=== PATIENT | male | born 1935 | race African-American/Black ===

== ENCOUNTER 2017-06-07 10:02 | Day surgery (SDC) | payer MEDICARE, BC, OTHER ==
[~2017-06-07] VITALS: Ht 180.3 cm; Wt 102.3 kg
[~2017-06-07 10:02] MED LIST: AMBIEN 10MG10 MG PO; AMBIEN 5MG TABLE5 MG PO; AMBIEN10 MG PO; AMITRIPTYLINE H25 M1 PO; AMITRIPTYLINE25 MG PO; AMRIX15 MG PO; ANTIVERT 25MG25 MG PO; ARTHRITIS PAIN PO; ASPI325T6 PO; ASPIR-LOX AD325 MG PO; ASPIRIN 32325 MG/TAB PO; ASPIRIN E.C. 8181 MG PO; ATACAND 16M16 MG/TAB PO; ATACAND PO; ATACAND16 MG PO; ATACAND32 MG PO; BIAXIN 500MG T500 MG PO; BIAXIN FILMTAB500 MG PO; BIAXIN500 MG PO; BROVANA15 MCG/2 M IH; CARDENE 20MG CA20 M1 PO; CARDENE PO; CARDIZEM 60MG T60 MG PO; CELEBREX 200MG200 MG PO; CELEBREX200 MG PO; CINNAMON500 MG PO; COUMADIN 22.5 MG/TAB PO; COUMADIN 5MG5 MG/TAB PO; CUTIVATE15GMOINT TOP; DALIRESP500 MCG PO; EC NAPROSYN500 MG PO; FIORICET 325 MG1 TAB PO; FUROCOT40 MG PO; GENTAMICIN180 MG/501 NS; GLIPIZIDE5 MG PO; GLUCOPHAGE500 MG/TAB PO; HCTZ 25MG TAB25 MG PO; HCTZ 25MG25 MG PO; HCTZ PO; HYDROCORTISONE30 G3 TP; INDERAL 20MG20 MG PO; INDERAL PO; INDERAL60 MG PO; IRON TABLETS325 MG PO; IRON325 M1 PO; JANUVIA 100MG100 MG PO; K-DUR 10 MEQ T10 MEQ PO; KLOR-CON 1010 MEQ PO; LASIX 40MG TABL40 MG PO; LASIX40 MG PO; LETAIRIS10 MG PO; LETAIRIS5 MG PO; LEVAQUIN 5500 MG/TA1 PO; LEVAQUIN 750MG750 M1 PO; LIDO TOP; LIDO35.4 TOP; LIPITOR 80MG80 MG PO; LODINE 300300 MG/CAP PO; MAXIMUM D310000 IU PO; METFORMIN500 MG PO; MIDRIN; MIDRIN 325 MG-11 CAP PO; MIDRIN PO; MITIGARE0.6 MG PO; MUCINEX1200 MG PO; NAPROSYN500 MG PO; NEURONTIN300 MG PO; NEURONTIN300 MG/CAP PO; NITROSTAT0.4 MG/TAB SL; NORCO 325 MG-51 TAB PO; NORVASC 5MG5 MG/TAB PO; OXY IR5 MG PO; PERCOCET 325 MG1 TA2 PO; POTASSIUM; POTASSIUM CHLO10 ME3 PO; POTASSIUM CL 110 MEQ PO; PRAVACHOL 40MG40 MG PO; PRAVACHOL80 MG PO; PREDNISONE20 MG PO; PREVACID 30MG30 M1 PO; PRIL40 PO; PRILOSEC 20MG20 MG PO; PROCTOFOAM-HC 11 FOA RC; PROPRANOLOL10 MG PO; PULMICORT R1 MG/2 ML IH; PULMICORT0.5 MG/2 M IH; RANEXA 500MG T500 MG PO; SIMVASTATIN10 MG PO; SIMVASTATIN20 MG PO; SPORANOX100 MG PO; TOPAMAX25 M1 PO; TYLENOL 500MG500 MG PO; VICODIN 5/5001 UDTAB PO; VITAMIN D 1001000 IU PO; WESTCORT TP; XANAX 0.5MG0.5 MG PO; XOPENEX 1.1.25 MG/3 INH; ZITHROMAX 250M250 MG PO; ZITHROMAX500 M2 PO; ZOCOR 10MG10 MG PO; ZOCOR 20MG20 MG PO; ZOCOR10 MG PO; [UNRECOGNIZED DRUG - OTHER]; [UNRECOGNIZED DRUG - OTHER]; [UNRECOGNIZED DRUG - OTHER]
[2017-06-07] MEDS ORDERED: LYRICA 100MG C100 M1 PO (10:41)
[2017-06-07] MEDS ORDERED: INDERAL 20MG20 MG PO (10:43)
[2017-06-07] MEDS ORDERED: INDERAL60 MG PO (10:44)
[2017-06-07] MEDS ORDERED: OXYCONTIN 10MG10 MG PO ×2 (10:45→10:46)
[2017-06-07 11:03] VITALS: BP 131/66; PULSE 52; TEMP 97.4
[2017-06-07 13:45] VITALS: BP 116/73; PULSE 46; TEMP 98.5
[2017-06-07 14:00] VITALS: BP 141/61; PULSE 47
[2017-06-07 14:15] VITALS: BP 143/90; PULSE 46
[2017-06-07] MEDS ORDERED: PYRIDIUM 100MG100 MG PO (14:26)
[2017-06-07] MEDS ORDERED: SENOKOT S 50 MG1 TAB PO (14:26)
[2017-06-07 14:30] VITALS: BP 141/66; PULSE 46
== END 2017-06-07 14:40 | disposition home or self-care (01) ==
LOC: SDCO 10:02
DX: N20.1 Calculus of ureter (principal); N40.1 Benign prostatic hyperplasia with lower urinary tract symptoms; R35.1 Nocturia; R39.15 Urgency of urination; I10 Essential (primary) hypertension; I25.2 Old myocardial infarction; I25.10 Atherosclerotic heart disease of native coronary artery without angina pectoris; E11.42 Type 2 diabetes mellitus with diabetic polyneuropathy; I48.91 Unspecified atrial fibrillation; J44.9 Chronic obstructive pulmonary disease, unspecified; F41.9 Anxiety disorder, unspecified; E78.00 Pure hypercholesterolemia, unspecified; M19.90 Unspecified osteoarthritis, unspecified site; G47.33 Obstructive sleep apnea (adult) (pediatric); Z79.84 Long term (current) use of oral hypoglycemic drugs; Z90.49 Acquired absence of other specified parts of digestive tract; Z83.3 Family history of diabetes mellitus; Z82.49 Family history of ischemic heart disease and other diseases of the circulatory system
CPT/HCPCS: C1769; C2617; J2405; J2704; J3010; J7030; Q9967

== ENCOUNTER → 2018-08-10 | Outpatient (CLI) | payer MEDICARE, BC, OTHER ==
[~2018-08-10] MED LIST changes: +LYRICA 100MG C100 M1 PO; +OXYCONTIN 10MG10 MG PO; +PYRIDIUM 100MG100 MG PO; +SENOKOT S 50 MG1 TAB PO
== END ==
LOC: COL.RAD 10:09
DX: N40.0 Benign prostatic hyperplasia without lower urinary tract symptoms (principal); Z90.49 Acquired absence of other specified parts of digestive tract
CPT/HCPCS: Q9967

== ENCOUNTER 2019-02-28 05:10 | Day surgery (SDC) | payer MEDICARE, BC, OTHER ==
[2019-02-28] VITALS (7 sets, daily range): BP systolic 125–146; BP diastolic 59–64; PULSE 49–56; TEMP 97.3–98.2
[~2019-02-28] VITALS: Ht 182.9 cm; Wt 92.3 kg
[2019-02-28] MEDS ORDERED: MITIGARE0.6 MG PO (06:21)
[2019-02-28] MEDS ORDERED: SINGULAIR 110 MG/TAB PO (06:28)
[2019-02-28] MEDS ORDERED: [UNRECOGNIZED DRUG - OTHER] TOP (06:29)
[2019-02-28] MEDS ORDERED: PRILOSEC 20MG20 MG PO (06:29)
[2019-02-28] MEDS ORDERED: FLONASEALLERGY NS (06:30)
[2019-02-28] MEDS ORDERED: DALIRESP500 MCG PO (06:31)
[2019-02-28] MEDS ORDERED: REMERON SOLTAB15 MG PO (06:31)
[2019-02-28] MEDS ORDERED: CIALIS5 MG PO (06:32)
--- NOTE | 2019-02-28 08:50 | NUR ---
The patient arrived back to [facility] from the recovery room at this time. The patient appears drowsy but arouses easily to his name. The patient denies any pain or nausea at this time. The patient has an jose wrap dressing with a knee brace in place to his right leg that appears clean, dry and intact. The patient has oxygen in place at 1L per nasal cannula. Post operative vital signs were started at this time. The patient received a nerve block and minimal spinal for pain control. The patient is able to move his left toes at this time but is still unable to move the right toes. Call light is within reach. Will continue to monitor the patient.
[2019-02-28] MEDS ORDERED: NORCO 325 MG-51 TAB PO (09:05)
--- NOTE | 2019-02-28 09:05 | NUR ---
The patient's was brought back to be at his bedside at this time. The patient's vital signs remain stable. The patient's call light is within reach. Will continue to monitor the patient.
[2019-02-28] MEDS ORDERED: COLACE 100100 MG/CAP PO (09:06)
[2019-02-28] MEDS ORDERED: XARELTO10 MG PO (09:06)
[2019-02-28] MEDS ORDERED: ZOFRAN 4MG T4 MG/TAB PO (09:07)
--- NOTE | 2019-02-28 09:20 | NUR ---
The patient appears to be resting quietly on the cart his with his eyes closed at this time. Respirations even and unlabored. Call light is within reach. The patient's remains at his bedside. Will continue to monitor the patient.
--- NOTE | 2019-02-28 09:35 | NUR ---
The patient requests to try some juice and water at this time. The patient's remains at his bedside. Will continue to monitor the patient.
--- NOTE | 2019-02-28 10:05 | NUR ---
The patient appeared to tolerate the juice well and requests to try a muffin at this time. The patient was placed on room air and appears to be tolerating it well. The patient is now able to move his left foot and wiggle his toes on the right side. The patient reports increased pain in his right knee at this time. The nurse explained to the patient about the nerve block and minimal spinal that he received pre operatively for pain control and that with the minimal movement he still has in both legs that is an indication that the medication given is still working. Will continue to monitor the patient.
--- NOTE | 2019-02-28 10:35 | NUR ---
The patient has finished his muffin and appeared to tolerate it well. The patient continues to report increased pain in his right knee at this time. The patient is able to do a straight leg lift with the left leg and can move his right ankle. The patient was given a PRN dose of Cinebar one tab at this time. The patient was also given fresh warm blankets and denies any futher needs at this time. Will continue to monitor the patient.
--- NOTE | 2019-02-28 11:05 | NUR ---
The patient used the call light to notify the nurse that he needed to void and was feeling nauseated. The patient did have a small amount of emesis come up. He was given a fresh emesis bag at this time. The patient was given a urinal and dangled his legs off the side of the bed to use it. He voided 200mL of yellow urine at this time. Will continue to monitor the patient.
--- NOTE | 2019-02-28 11:20 | NUR ---
The patient continues to report nausea and pain at this time. The nurse informed the patient that she will give him a dose of anti-nausea medication then will give him a second dose of Huddy.
--- NOTE | 2019-02-28 11:40 | NUR ---
The patient nausea appears to be better and he was given a second pain pill for his continued pain in his right knee. The patient and his voice a desire to be discharged home. Discharge instructions were reviewed with the patient and his at this time. They both verbalized understanding and have no questions for the nurse at this time. The patient's IV to his right hand was removed and a pressure dressing was applied to the site. The patient is dressed and ready to be escorted out.
--- NOTE | 2019-02-28 11:50 | NUR ---
The patient was escorted out via wheelchair to a private vehicle by NITA Love. The patient's belongings and discharge paperwork were sent with him. The patient's is present to drive him home.
== END 2019-02-28 11:50 | disposition home or self-care (01) ==
LOC: SDCO 05:10
DX: S76.111A Strain of right quadriceps muscle, fascia and tendon, initial encounter (principal); S80.01XA Contusion of right knee, initial encounter; I10 Essential (primary) hypertension; I25.10 Atherosclerotic heart disease of native coronary artery without angina pectoris; I25.2 Old myocardial infarction; I48.91 Unspecified atrial fibrillation; J44.9 Chronic obstructive pulmonary disease, unspecified; G43.909 Migraine, unspecified, not intractable, without status migrainosus; G47.33 Obstructive sleep apnea (adult) (pediatric); E78.00 Pure hypercholesterolemia, unspecified; M19.90 Unspecified osteoarthritis, unspecified site; R29.6 Repeated falls; F41.9 Anxiety disorder, unspecified; E11.42 Type 2 diabetes mellitus with diabetic polyneuropathy; G89.18 Other acute postprocedural pain; Z86.718 Personal history of other venous thrombosis and embolism; Z86.711 Personal history of pulmonary embolism; Z83.3 Family history of diabetes mellitus; Z79.51 Long term (current) use of inhaled steroids; Z79.84 Long term (current) use of oral hypoglycemic drugs; Z88.8 Allergy status to other drugs, medicaments and biological substances; Z79.82 Long term (current) use of aspirin; W01.0XXA Fall on same level from slipping, tripping and stumbling without subsequent striking against object, initial encounter
CPT/HCPCS: J0690; J2250; J2405; J2704; J7030

== ENCOUNTER 2020-10-04 11:06 | Day surgery (SDC) | payer MEDICARE, BC, OTHER ==
[~2020-10-04] VITALS: Ht 182.9 cm; Wt 98.5 kg
[~2020-10-04 11:06] MED LIST changes: +CIALIS5 MG PO; +COLACE 100100 MG/CAP PO; +FLONASEALLERGY NS; +REMERON SOLTAB15 MG PO; +SINGULAIR 110 MG/TAB PO; -VITAMIN D 1001000 IU PO; +VITAMIN D31000 I1 PO; +XARELTO10 MG PO; +ZOFRAN 4MG T4 MG/TAB PO; +[UNRECOGNIZED DRUG - OTHER] TOP
[2020-10-04 11:35] VITALS: BP 165/85; PULSE 53; TEMP 98.3
[2020-10-04 13:05] VITALS: BP 129/74; PULSE 58; TEMP 97.6
--- NOTE | 2020-10-04 13:05 | NUR ---
PATIENT BROUGHT BACK TO [facility] VIA CART. AMBULATED TO CHAIR WITHOUT DIFFICULTY. PLACED ON MONITORS, VITAL SIGNS STABLE. IV INFUSING WITHOUT DIFFICULTY. AT BEDSIDE. REPORT RECIEVED FROM MAE HOFFMAN. DR. AVILES AT BEDSIDE TO EXPLAIN RESULTS. PATIENT DENIES ANY PAIN OR NAUSEA. REQUESTS SODA AND MUFFIN. CALL GALAN WITHIN REACH, WARM BLANKET PROVIDED, WILL CONTINUE TO MONITOR.
[2020-10-04 13:20] VITALS: BP 136/76; PULSE 58
[2020-10-04 13:35] VITALS: BP 151/81; PULSE 53
--- NOTE | 2020-10-04 13:35 | NUR ---
Patient tolerating food and drink without difficulty. Denies pain or nausea. States he feels ready to go home.
--- NOTE | 2020-10-04 13:55 | NUR ---
DISCHARGE INSTRUCTIONS REVIEWED WITH PAITENT AND . ALL QUESTIONS ANSWERED. BROUGHT DOWN TO LOBBY VIA WHEEL CHAIR. ALL BELONGINGS IN HAND. TRANSFERED TO CAR WITHOUT DIFFICULTY. TO BE DRIVEN HOME BY .
== END 2020-10-04 13:55 | disposition home or self-care (01) ==
LOC: SDCO 11:06
DX: K21.9 Gastro-esophageal reflux disease without esophagitis (principal); K22.5 Diverticulum of esophagus, acquired; I27.20 Pulmonary hypertension, unspecified; I26.99 Other pulmonary embolism without acute cor pulmonale; D64.9 Anemia, unspecified; J44.9 Chronic obstructive pulmonary disease, unspecified; E78.00 Pure hypercholesterolemia, unspecified; J37.0 Chronic laryngitis; E11.42 Type 2 diabetes mellitus with diabetic polyneuropathy; G47.00 Insomnia, unspecified; G47.33 Obstructive sleep apnea (adult) (pediatric); M19.90 Unspecified osteoarthritis, unspecified site; M48.00 Spinal stenosis, site unspecified; G44.209 Tension-type headache, unspecified, not intractable; Z90.49 Acquired absence of other specified parts of digestive tract; Z98.890 Other specified postprocedural states; Z88.8 Allergy status to other drugs, medicaments and biological substances; Z79.82 Long term (current) use of aspirin; Z79.899 Other long term (current) drug therapy; Z79.84 Long term (current) use of oral hypoglycemic drugs
CPT/HCPCS: J7030